=== PATIENT | male | born 1995 | race Caucasian/White ===

== ENCOUNTER 2017-02-01 11:51 | Emergency (ER) | payer BC ==
[2017-02-01 11:56] VITALS: RESP 16; TEMP 98.1
--- NOTE | 2017-02-01 13:03 | EDPHY ---
H & P Smoking Status: Never smoked Time Seen by Provider: 02/01/17 12:00 HPI/ROS: CHIEF COMPLAINT: left shoulder pain HISTORY OF PRESENT ILLNESS: 21-year-old male presents emergency department complaining of left shoulder pain. Patient was skiing 2 days ago and fell onto his left shoulder, he denies head strike, no loss of consciousness, was wearing a helmet. He is [id number]. Patient reports pain to his left shoulder with range of motion. No numbness or tingling in his arm, no elbow or wrist pain. He denies previous injury to this arm. (Nataly Lomeli) Physical Exam: GEN: Awake, alert, oriented, no acute distress RESP: nl resp effort MSK: Left shoulder with tenderness to palpation over AC joint, decreased forward flexion and abduction due to pain, no deformity, no tenderness over clavicle, 2+ radial pulses, left elbow with full flexion, extension, pronation and supination, sensation intact to light touch SKIN: No break in skin (Nataly Lomeli) Constitutional: Initial Vital Signs Temperature (C) 36.7 C 02/01/17 11:53 Heart Rate 62 02/01/17 11:53 Respiratory Rate 16 02/01/17 11:53 Blood Pressure 137/72 H 02/01/17 11:53 O2 Sat (%) 95 02/01/17 11:53 O2 Delivery Mode Room Air Allergies/Adverse Reactions: No Known Allergies Allergy (Unverified 02/01/17 11:56) Home Medications: Medication Instructions Recorded NK [No Known Home Meds] 02/01/17 MDM/Departure - MDM Diagnostics: Shoulder x-ray independently reviewed by me- Impression: 1. No acute fracture or dislocation. 2. Query type II AC separation. Dictated By: Marco A Hannah MD (Nataly Lomeli) ED Course/Re-evaluation: I did not see this patient while he was in the emergency department. However his care was discussed with nurse practitioner while the patient was in the department. I agree with treatment plan and management (Maksim Mcgee) - Depart Disposition: Home, Routine, Self-Care Clinical Impression: Sprain of left acromioclavicular joint Condition: Good Instructions: Acromioclavicular Separation (ED) Additional Instructions: Rest, ice, wear sling for comfort, take 600mg of ibuprofen every 8 hours with food for 3-5 days as needed for pain and swelling. Return to the emergency department for any numbness, tingling, discoloration of you limb or other concerns. Call the orthopedist tomorrow morning to schedule an appointment to be seen at 1st available appointment. Referrals: Marco A Sibley MD [Medical Doctor] - As per Instructions (Orthopedist on-call)
[2017-02-01 13:20] VITALS: BP 169/96; PULSE 65; O2SAT 98
== END 2017-02-01 13:21 | disposition home or self-care (01) ==
DX: S43.52XA Sprain of left acromioclavicular joint, initial encounter (principal); V00.321A Fall from snow-skis, initial encounter; Y99.8 Other external cause status; Y93.23 Activity, snow (alpine) (downhill) skiing, snowboarding, sledding, tobogganing and snow tubing
CPT/HCPCS: A4565

== ENCOUNTER 2017-08-09 20:36 | Emergency (ER) | payer BC ==
[2017-08-09 20:44] VITALS: BP 158/96; PULSE 56; RESP 17; TEMP 98.2; O2SAT 99
[2017-08-09] MEDS ORDERED: PROPARACAINE 0.5% 15 ML OPHT DROP OP ONE (21:26)
[2017-08-09] MEDS ORDERED: FLUORESCEIN SODIUM 1 MG STRIP OP ONE (21:26)
--- NOTE | 2017-08-09 21:53 | EDPHY ---
H & P Stated Complaint: Floaters and bright flashes in both eyes x 5days, worsening today. Source: Patient - Personal History Current Tetanus/Diphtheria Vaccine: Unsure Current Tetanus Diphtheria and Acellular Pertussis (TDAP): Unsure - Medical/Surgical History Hx Asthma: No Hx Chronic Respiratory Disease: No Hx Diabetes: No Hx Cardiac Disease: No Hx Renal Disease: No Hx Cirrhosis: No Hx Alcoholism: No Hx HIV/AIDS: No Hx Splenectomy or Spleen Trauma: No Other PMH: neg - Social History Smoking Status: Never smoked HPI/ROS: CHIEF COMPLAINT: Flashers and floaters in the left eye HISTORY OF PRESENT ILLNESS: Patient complains of flashers and floaters in the left eye. This started 3-4 days ago. At 1st it was intermittent. Now constant. No eye pain. No headache. No decreased vision. No difficulty with visual movement. No fever chills. No trauma or injury. Contacted his mother who is an RN. She is concern for retinal detachment, thus he is here. Mother is attempting to make an appoint with Ophthalmology for tomorrow. No other associated complaints or modifying factors. REVIEW OF SYSTEMS: Ten systems reviewed and are negative unless otherwise noted in the HPI PAST MEDICAL HISTORY: Attention deficit hyperactivity disorder on Adderall PAST SURGICAL HISTORY: Appendectomy as a child SOCIAL HISTORY: Nonsmoker. From [place]. Lives here in [place] is a student at [employer] FAMILY HISTORY: Noncontributory EXAMINATION General Appearance: Alert, no distress Head: normocephalic, atraumatic Eyes: Pupils equal and round, no conjunctival pallor or injection. EOMs intact. No nystagmus. No dysconjugate gaze. Bismark-Pen reveals pressures of 14- 18 in both eyes. No abnormality on slit-lamp. Ophthalmoscope reveals good visualization of the posterior globe without any irregular contour. No blood noted ENT, Mouth: Mucous membranes moist Neck: Normal inspection, supple, non-tender Respiratory: No retractions or distress Cardiovascular: Regular rate. Pulses intact distally Skin: Warm and dry, no rash. No petechiae or purpura. No orbital or periorbital cellulitis DIFFERENTIAL DIAGNOSES: Including but not limited to retinal detachment, corneal abrasion, floaters, CVA , TIA MDM: 9:50 p.m. Complaints of flashes and floaters over the past 3 days. Examination by confrontation, ophthalmoscope, and slit lamp does not reveal any abnormality to me. Bismark-Pen reveals pressures of 14-18 in both eyes. 10:15 p.m. Visual floaters without any evidence of hemorrhage or detachment. His vision is intact but he has no headache. He has no visual loss or blurred vision. Ophthalmoscope did not reveal any abnormal contours of the posterior globe. Slit-lamp was normal. Case discussed with Dr. Ge. We both agree that the patient be discharged home. Would like her to follow up with Ophthalmology tomorrow morning. The patient is comfortable this plan. He is to return to the emergency department for any sudden change in vision, blurred vision, curtain-type change in vision. He is also to return for any headache. He is comfortable this plan and discharged home stable condition. (Alexander Cutler) I did not personally see or evaluate this patient. However agree with the assessment and plan that Alexander BARBOUR has performed. I do recommend this patient gets followed up with Ophthalmology closely. Return ER if worsening symptoms questions concerns. (Dylon Ge) Constitutional: Initial Vital Signs Temperature (C) 36.8 C 08/09/17 20:38 Heart Rate 56 L 08/09/17 20:38 Respiratory Rate 17 08/09/17 20:38 Blood Pressure 158/96 H 08/09/17 20:38 O2 Sat (%) 99 08/09/17 20:38 O2 Delivery Mode Room Air Allergies/Adverse Reactions: No Known Allergies Allergy (Unverified 02/01/17 11:56) Home Medications: Medication Instructions Recorded Adderall 10 MG (*) 08/09/17 Medical Decision Making ED Course/Re-evaluation: I was not involved in the care of this patient. This patient was staffed with Dr. Ge. (Esther Yeager) - Data Points Medications Given: Discontinued Medications Fluorescein Sodium ([id number]) 1 mg OP EDNOW ONE Stop: 08/09/17 21:27 Last Admin: 08/09/17 21:34 Dose: 1 mg Proparacaine HCl (Alcaine 0.5%) 1 drops OP EDNOW ONE Stop: 08/09/17 21:27 Last Admin: 08/09/17 21:33 Dose: 1 drop Departure - Departure Disposition: Home, Routine, Self-Care Clinical Impression: Floaters in visual field Qualifiers: Laterality: unspecified laterality Qualified Code(s): H43.399 - Other vitreous opacities, unspecified eye Condition: Good Instructions: Blurred Vision (ED), Visual Floaters (ED) Referrals: Vivi Hensley MD [Non Staff Provider (MD)] - As per Instructions Stand Alone Forms: School Excuse
== END 2017-08-09 22:35 | disposition home or self-care (01) ==
DX: H43.393 Other vitreous opacities, bilateral (principal)

== ENCOUNTER 2018-02-27 02:08 | Emergency (ER) | payer BC ==
[2018-02-27] MEDS ORDERED: CIPROFLOXACIN 500 MG TAB PO ONE (02:43)
--- NOTE | 2018-02-27 02:43 | EDPHY ---
H & P Stated Complaint: Dehydation, diarrhea x5 days Time Seen by Provider: 02/27/18 02:35 HPI/ROS: Chief Complaint: Diarrhea, blood in stool HPI: 22-year-old male has been having multiple episodes of diarrhea intermittently for the last 8 days. Patient states that started on his last day and during a trip to [place]. For the last 11 hr he has been having about 4 stools an hour. He has noticed some blood in for the last couple of hours. Got very lightheaded at home. No fainting. No abdominal pain but has had some cramping. Has vomited once in the last week or so. No blood or coffee-grounds in his vomit. No fevers or chills. Does not have a history of similar episodes in the past. ROS: 10 point Review of Systems is negative except as noted in the HPI. PMH: Denies Social History: No smoking, no alcohol, no recreational drug use Family History: non-contributory Physical Exam: Gen: Awake, Alert, No Distress HEENT: Nose: no rhinorrhea Eyes: PERRLA, EOMI Mouth: Moist mucosa Neck: Supple, no JVD Chest: nontender, lungs clear to auscultation Heart: S1, S2 normal, no murmur Abd: Soft, non-tender, no guarding Back: no CVA tenderness, no midline tenderness Ext: no edema, non-tender Skin: no rash Neuro: CN II-XII intact, Sensation grossly intact, Strength 5/5 in bilateral upper and lower extremities - Personal History Current Tetanus Diphtheria and Acellular Pertussis (TDAP): Yes - Medical/Surgical History Hx Asthma: No Hx Chronic Respiratory Disease: No Hx Diabetes: No Hx Cardiac Disease: No Hx Renal Disease: No Hx Cirrhosis: No Hx Alcoholism: No Hx HIV/AIDS: No Hx Splenectomy or Spleen Trauma: No Other PMH: neg - Social History Smoking Status: Never smoked Constitutional: Initial Vital Signs Temperature (C) 36.5 C 02/27/18 02:12 Heart Rate 69 02/27/18 02:12 Respiratory Rate 20 02/27/18 02:12 Blood Pressure 162/84 H 02/27/18 02:12 O2 Sat (%) 98 02/27/18 02:12 O2 Delivery Mode Room Air Allergies/Adverse Reactions: No Known Allergies Allergy (Verified 02/27/18 02:12) Home Medications: Medication Instructions Recorded Adderall 10 MG (*) 08/09/17 Ciprofloxacin [Cipro] 500 mg PO BID #6 tab 02/27/18 Medical Decision Making ED Course/Re-evaluation: 22-year-old male with symptoms consistent with traveler's diarrhea. Given that his symptoms have been going on for about 7 or 8 days plan will be to start him on ciprofloxacin. He has received IV hydration here. He is tolerating p. O.. Will discharge with follow up at [facility] as needed. Departure - Departure Disposition: Home, Routine, Self-Care Clinical Impression: Travelers' diarrhea Condition: Good Instructions: Traveler's Diarrhea (ED) Additional Instructions: Make sure to drink plenty of fluids. Take your full course of antibiotics. Follow up at [facility] in 3-4 days if symptoms are not improving. Referrals: ALFIE THOMAS [Other] - As per Instructions [facility]ARCELINO MCCANN [facility],. [Clinic] - As per Instructions Prescriptions: Ciprofloxacin [Cipro] 500 mg PO BID #6 tab
[2018-02-27 03:08] VITALS: BP 121/76
== END 2018-02-27 03:08 | disposition home or self-care (01) ==
DX: R19.7 Diarrhea, unspecified (principal)